=== PATIENT | male | born 1990 | race Caucasian/White ===

== ENCOUNTER 2020-10-18 12:10 | Emergency (ER) | payer OTHER ==
[~2020-10-18] VITALS: Ht 182.9 cm; Wt 72.6 kg
[2020-10-18 12:24] VITALS: BP 104/63
--- NOTE | 2020-10-18 12:24 | NUR ---
ED Nurse Note: unable to scan normal saline. verified correct med
[2020-10-18 12:31] LABS: BASOPHILS % (AUTO) 0.8 % (0.0-2.0); EOSINOPHILS % (AUTO) 0.8 % (0.0-3.0); HEMATOCRIT 45.4 % (42.0-52.0); LYMPHOCYTES % (AUTO) 25.1 % (20.0-45.0); MEAN CORPUSCULAR VOLUME 86 FL (80-99); MONOCYTES % (AUTO) 9.1 % (1.0-10.0); NEUTROPHILS % (AUTO) 64.2 % (45.0-75.0); PLATELET COUNT 272 K/UL (150-450); RED BLOOD COUNT 5.26 M/UL (4.70-6.10); RED CELL DISTRIBUTION WIDTH 12.1 % (11.6-14.8); WHITE BLOOD COUNT 8.5 K/UL (4.8-10.8)
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
[2020-10-18 12:51] LABS: ANION GAP 8 mmol/L (5-15); BLOOD UREA NITROGEN 18 mg/dL (7-18); CALCIUM 9.2 MG/DL (8.5-10.1); CARBON DIOXIDE 29 MMOL/L (21-32); CHLORIDE 107 MMOL/L (98-107); CREATININE 0.9 MG/DL (0.55-1.30); POTASSIUM 4.2 MMOL/L (3.5-5.1); SODIUM 144 MMOL/L (136-145)
[2020-10-18 12:56] LABS: ALANINE AMINOTRANSFERASE 35 U/L (12-78); ALBUMIN 4.2 G/DL (3.4-5.0); ALKALINE PHOSPHATASE 63 U/L (46-116); ASPARTATE AMINO TRANSFERASE 21 U/L (15-37); BILIRUBIN,TOTAL 0.6 MG/DL (0.2-1.0); CREATINE KINASE 186 U/L (26-308)
--- NOTE | 2020-10-18 12:58 | NUR ---
ED Nurse Note: pt keeps telling this RN to come and lay by him, no one will care
[2020-10-18 13:04] VITALS: BP 135/89
--- NOTE | 2020-10-18 13:33 | Emergency Room Report ---
History of Present Illness General Chief Complaint: Alcohol Intoxication Source: Patient, EMS Present Illness HPI Paramedics were called as the patient was being arrested by [employer] for stealing things and had altered mentation. They were under the impression that the patient had been drinking alcohol. The patient is refusing to answer questions about what he is ingested or taken. He denies suicidal or homicidal ideation at this time. The patient denies pain. Apparently the patient was fighting with police and therefore is under arrest. He is here for medical clearance. Blood glucose in the field was 108. The patient will not answer whether he has been exposed to Covid positive contacts. In addition she does not answer questions other than those that were noted above. Allergies: Coded Allergies: No Known Allergies (Unverified , 10/18/20) COVID-19 Screening Contact w/high risk pt: No Experienced COVID-19 symptoms?: No COVID-19 Testing performed ALMOND BLANCHER HAND: No Patient History Limited by: medical condition Past Medical History: see triage record Social History: Reports: smoking, alcohol use - Allegedly, drug use Social History Narrative Unknown domicile Reviewed Nursing Documentation: PMH: Agreed; PSxH: Agreed Review of Systems All Other Systems: limited Physical Exam Vital Signs Date Time Temp Pulse Resp B/P (MAP) Pulse Ox O2 Delivery O2 Flow Rate FiO2 10/18/20 11:59 97.7 96 18 132/73 (92) 98 Room Air Sp02 EP Interpretation: reviewed, normal General Appearance: no apparent distress, GCS 15, other - Slightly disheveled Head: normocephalic, atraumatic Eyes: bilateral eye PERRL, bilateral eye EOMI, bilateral eye Scleral Injection ENT: moist mucus membranes Neck: supple Respiratory: lungs clear, normal breath sounds Cardiovascular #1: regular rate, rhythm Cardiovascular #2: 2+ radial (R) Gastrointestinal: normal inspection, normal bowel sounds, non tender, no mass, non-distended Musculoskeletal: back normal, normal range of motion Neurologic: alert, motor strength/tone normal, oriented - X2, does not know date, sensory intact, cerebellar normal, speech normal - Pressured Psychiatric: no suicidal/homicidal ideation, anxious, other - Slightly delusional Skin: no rash, warm/dry Medical Decision Making Diagnostic Impression: Primary Impression: Substance abuse ER Course Patient presents with alleged alcohol intoxication under arrest. Differential includes alcohol intoxication, electrolyte imbalance, rhabdomyolysis, other substance abuse, exacerbation of unknown psychological disorder amongst others. No evidence of head trauma and CT is not indicated. Evaluation with EKG and labs. Patient treated with IV hydration and repeat evaluations. EKG without injury. Labs significant for amphetamines and THC. CBC, CMP and CPK are normal. Of note blood alcohol is 0. Patient improved with hydration. More purposeful. Still denies suicidal or tito icidal ideation. When asked if he had a sponsor he is unable to answer the question. No medical emergency at this time. Patient stable for incarceration. Laboratory Tests Test 10/18/20 12:16 10/18/20 12:30 White Blood Count 8.5 K/UL (4.8-10.8) Red Blood Count 5.26 M/UL (4.70-6.10) Hemoglobin 15.0 G/DL (14.2-18.0) Hematocrit 45.4 % (42.0-52.0) Mean Corpuscular Volume 86 FL (80-99) Mean Corpuscular Hemoglobin 28.6 PG (27.0-31.0) Mean Corpuscular Hemoglobin Concent 33.1 G/DL (32.0-36.0) Red Cell Distribution Width 12.1 % (11.6-14.8) Platelet Count 272 K/UL (150-450) Mean Platelet Volume 8.7 FL (6.5-10.1) Neutrophils (%) (Auto) 64.2 % (45.0-75.0) Lymphocytes (%) (Auto) 25.1 % (20.0-45.0) Monocytes (%) (Auto) 9.1 % (1.0-10.0) Eosinophils (%) (Auto) 0.8 % (0.0-3.0) Basophils (%) (Auto) 0.8 % (0.0-2.0) Sodium Level 144 MMOL/L (136-145) Potassium Level 4.2 MMOL/L (3.5-5.1) Chloride Level 107 MMOL/L (98-107) Carbon Dioxide Level 29 MMOL/L (21-32) Anion Gap 8 mmol/L (5-15) Blood Urea Nitrogen 18 mg/dL (7-18) Creatinine 0.9 MG/DL (0.55-1.30) Estimated Glomerular Filtration Rate > 60 mL/min (>60) Glucose Level 70 MG/DL (74-106) L Calcium Level 9.2 MG/DL (8.5-10.1) Total Bilirubin 0.6 MG/DL (0.2-1.0) Aspartate Amino Transferase (AST) 21 U/L (15-37) Alanine Aminotransferase (ALT) 35 U/L (12-78) Alkaline Phosphatase 63 U/L (46-116) Total Creatine Kinase 186 U/L (26-308) Total Protein 8.2 G/DL (6.4-8.2) Albumin 4.2 G/DL (3.4-5.0) Globulin 4.0 g/dL Albumin/Globulin Ratio 1.0 (1.0-2.7) Salicylates Level 0.4 ug/mL (2.8-20) L Acetaminophen Level < 2 MCG/ML (10-30) L Serum Alcohol < 3 mg/dL Urine Opiates Screen Negative (NEGATIVE) Urine Barbiturates Screen Negative (NEGATIVE) Phencyclidine (PCP) Screen Negative (NEGATIVE) Urine Amphetamines Screen Positive (NEGATIVE) H Urine Benzodiazepines Screen Negative (NEGATIVE) Urine Cocaine Screen Negative (NEGATIVE) Urine Marijuana (THC) Screen Positive (NEGATIVE) H EKG Diagnostic Results Rate: normal Rhythm: NSR ST Segments: no acute changes Rhythm Strip Diag. Results EP Interpretation: yes Rhythm: NSR, no PVC's, no ectopy Last Vital Signs Date Time Temp Pulse Resp B/P (MAP) Pulse Ox O2 Delivery O2 Flow Rate FiO2 10/18/20 13:44 96.0 63 18 124/62 99 Room Air Status: improved Disposition: LAW ENFORCEMENT IN CUST Condition: Stable Kashif Stanton MD Oct 18, 2020 13:33
== END 2020-10-18 15:00 ==
LOC: EDBD 12:10 → EMR 13:47
DX: F10.129 Alcohol abuse with intoxication, unspecified (principal)
CPT/HCPCS: 36415; 80053; 80307; 82550; 85025; 93005; 96360; 99284; G0480